=== PATIENT | female | born 1980 | race Caucasian/White ===

== ENCOUNTER 2020-05-10 09:12 | Day surgery (SDC) | payer OTHER ==
[~2020-05-10] VITALS: Ht 162.6 cm; Wt 113.4 kg
[~2020-05-10 09:12] MED LIST: BCP PO; CLAR10CA3 PO
[2020-05-10 10:04] LABS: HEMATOCRIT 40.2 % (36.0-47.0); HEMOGLOBIN 14.2 g/dl (12.0-15.5); MEAN CORPUSCULAR HEMOGLOBIN 33.7 pg (27.0-33.0); MEAN CORPUSCULAR HGB CONC 35.3 g/dl (32.0-36.5); MEAN CORPUSCULAR VOLUME 95.5 fl (80.0-96.0); PLATELET COUNT, AUTOMATED 300 10^3/uL (150-450); RED BLOOD COUNT 4.21 10^6/uL (4.00-5.40); WHITE BLOOD COUNT 10.3 10^3/uL (4.0-10.0)
[2020-05-10 10:32] LABS: BLOOD UREA NITROGEN 9 MG/DL (7-18); CALCIUM LEVEL 9.1 MG/DL (8.5-10.1); CARBON DIOXIDE LEVEL 24 MEQ/L (21-32); CHLORIDE LEVEL 105 MEQ/L (98-107); CREATININE FOR GFR 0.64 MG/DL (0.55-1.30); GLOMERULAR FILTRATION RATE > 60.0 (>60); GLUCOSE, FASTING 80 MG/DL (70-100); HCG, SERUM QUANTITATIVE < 1.0 MIU/ML; POTASSIUM SERUM 4.1 MEQ/L (3.5-5.1); SODIUM LEVEL 136 MEQ/L (136-145)
[2020-05-10] MEDS ORDERED: ONDANSETRON 4MG/2ML VIAL As Ordered ONE (10:34)
[2020-05-10] MEDS ORDERED: fentaNYL 100 MCG/2 ML INJECTION (J3010) As Ordered ONE ×2 (10:34→12:16)
[2020-05-10] MEDS ORDERED: dexameTHASONE 4 MG/ML 1ML VIAL (J1100 PER 1MG) As Ordered ONE (10:34)
[2020-05-10] MEDS ORDERED: LIDOCAINE 2% 100MG/5ML SDV (FOR ANES.) As Ordered ONE (10:34)
[2020-05-10] MEDS ORDERED: ROCURONIUM BROMIDE 50 MG/5 ML VIAL As Ordered ONE (10:34)
[2020-05-10] MEDS ORDERED: MIDAZOLAM INJ 2MG/2ML VIAL (J2250 PER 1MG) As Ordered ONE (10:34)
[2020-05-10] MEDS ORDERED: propofoL 200 MG/20 ML VIAL As Ordered ONE (10:34)
[2020-05-10] MEDS ORDERED: BUPIVACAINE HCL 0.5% 10ML VIAL As Ordered ONE (11:26)
[2020-05-10] MEDS ORDERED: ACETAMINOPHEN 650 MG SUPP As Ordered ONE ×2 (11:26→11:58)
[2020-05-10] MEDS ORDERED: KETOROLAC 60MG 2ML VIAL As Ordered ONE (12:00)
[2020-05-10] MEDS ORDERED: SUGAMMADEX SODIUM 500 MG/5 ML VIAL (BRIDION) As Ordered ONE (12:00)
[2020-05-10] MEDS ORDERED: LABETALOL 100MG/20ML VIAL As Ordered ONE (12:00)
[2020-05-10] MEDS ORDERED: METOCLOPRAMIDE INJ 10MG/2ML VIAL (J2765 PER 1) As Ordered ONE (13:32)
[2020-05-10] MEDS ORDERED: LR 1,000 ML IV SCH (13:45)
[2020-05-10] MEDS ORDERED: oxyCODONE 5MG TAB PO PRN (13:45)
[2020-05-10] MEDS ORDERED: ONDANSETRON 4MG/2ML VIAL IV PRN (13:45)
[2020-05-10] MEDS ORDERED: fentaNYL 100 MCG/2 ML INJECTION (J3010) IV PRN (13:45)
[2020-05-10] MEDS ORDERED: HYDROMORPHONE HCL 0.5 MG/ 0.5 ML SYRINGE (J1170 PER 1) IV PRN (13:45)
[2020-05-10 14:30] VITALS: BP 142/77
[2020-05-10] MEDS ORDERED: KETOROLAC 30 MG/ML 1ML VIAL IV PRN (19:00)
== END 2020-05-10 14:30 | disposition home or self-care (01) ==
LOC: M SDC 09:12
PROVIDERS: ATTEND Obstetrics & Gynecology
DX: Z30.2 Encounter for sterilization (principal); N93.9 Abnormal uterine and vaginal bleeding, unspecified
CPT/HCPCS: 36415; 58558; 58661; 80048; 84702; 85027; 88302; 88305; J1100; J1885; J2250; J2405; J3010

== ENCOUNTER 2020-11-02 09:59 | Day surgery (SDC) | payer OTHER ==
[~2020-11-02] VITALS: Ht 162.6 cm; Wt 112.9 kg
[~2020-11-02 09:59] MED LIST changes: +ACETAMINOPHEN 650 MG SUPP PR ONE; +LISI20TA35 PO; +LR 1,000 ML IV ONE; +NORG1TAB4 PO; +NS 1,000 ML IV SCH
[2020-11-02 10:27] LABS: HEMATOCRIT 38.4 % (36.0-47.0); HEMOGLOBIN 13.6 g/dl (12.0-15.5); MEAN CORPUSCULAR HEMOGLOBIN 34.9 pg (27.0-33.0); MEAN CORPUSCULAR HGB CONC 35.4 g/dl (32.0-36.5); MEAN CORPUSCULAR VOLUME 98.5 fl (80.0-96.0); PLATELET COUNT, AUTOMATED 335 10^3/uL (150-450); WHITE BLOOD COUNT 10.2 10^3/uL (4.0-10.0)
[2020-11-02 11:00] LABS: BLOOD UREA NITROGEN 13 MG/DL (7-18); CALCIUM LEVEL 9.2 MG/DL (8.5-10.1); CARBON DIOXIDE LEVEL 30 MEQ/L (21-32); CHLORIDE LEVEL 105 MEQ/L (98-107); CREATININE FOR GFR 0.59 MG/DL (0.55-1.30); GLOMERULAR FILTRATION RATE > 60.0 (>60); GLUCOSE, FASTING 92 MG/DL (70-100); HCG, SERUM QUANTITATIVE < 1.0 MIU/ML; POTASSIUM SERUM 4.4 MEQ/L (3.5-5.1); SODIUM LEVEL 140 MEQ/L (136-145)
[2020-11-02] MEDS ORDERED: propofoL 200 MG/20 ML VIAL As Ordered ONE ×2 (12:06→12:34)
[2020-11-02] MEDS ORDERED: LIDOCAINE 2% 100MG/5ML SDV (FOR ANES.) As Ordered ONE (12:06)
[2020-11-02] MEDS ORDERED: MIDAZOLAM INJ 2MG/2ML VIAL (J2250 PER 1MG) As Ordered ONE (12:06)
[2020-11-02] MEDS ORDERED: fentaNYL 100 MCG/2 ML INJECTION (J3010) As Ordered ONE ×2 (12:06→13:05)
[2020-11-02] MEDS ORDERED: ACETAMINOPHEN 650 MG SUPP As Ordered ONE (12:50)
[2020-11-02] MEDS ORDERED: dexameTHASONE 4 MG/ML 1ML VIAL (J1100 PER 1MG) As Ordered ONE (12:58)
[2020-11-02] MEDS ORDERED: ONDANSETRON 4MG/2ML VIAL As Ordered ONE (12:58)
[2020-11-02] MEDS ORDERED: KETOROLAC 60MG 2ML VIAL As Ordered ONE (12:58)
[2020-11-02] MEDS ORDERED: ONDANSETRON 4MG/2ML VIAL IV PRN (14:00)
[2020-11-02] MEDS ORDERED: LR 1,000 ML IV SCH (14:00)
[2020-11-02] MEDS ORDERED: oxyCODONE 5MG TAB PO PRN (14:00)
[2020-11-02] MEDS ORDERED: fentaNYL 100 MCG/2 ML INJECTION (J3010) IV PRN (14:00)
[2020-11-02 14:55] VITALS: BP 129/83
[2020-11-02] MEDS ORDERED: KETOROLAC 30 MG/ML 1ML VIAL IV PRN (19:00)
--- NOTE | 2020-11-03 08:51 | RO ---
OPERATIVE NOTE DATE OF OPERATION: 11/02/2020 PREOPERATIVE DIAGNOSIS: POSTOPERATIVE DIAGNOSIS: PROCEDURE PROPOSED: Hysteroscopy, D&C, NovaSure endometrial ablation. OPERATION PERFORMED: Hysteroscopy, D&C, endometrial NovaSure ablation. SURGEON: Brain Flores MD CAVING GUIDE: ANESTHESIA: General. ESTIMATED BLOOD LOSS: Less than 20 mL. DESCRIPTION OF PROCEDURE: After adequate time out, prep and draped lithotomy position. Bladder drained of 100 mL of clear urine. Weighted speculum in vagina. Single tooth tenaculum on anterior lip of cervix. Uterus sounded up to 6 cm, dilated to Pappas 8. Curettage of the cavity revealed endometrial tissue which was sent off to pathology under separate cover. Last period was 10/30/2020. The endometrial NovaSure ablation instrument was placed in the cavity. The cavity showed that there was no evidence of perforation and I got a good seal. The distance of the cavity was 6 cm, width was 4 cm. The wattage was [address] at 32 seconds. With instrument correct we removed the endometrial NovaSure ablation. We then hysteroscoped the patient, on review anterior and posterior khalil were completely obliterated. There was a small area in the patient's left cornua that was not completely ablated but you could see that there was some charring there. We used 150 mL of normal saline in, 150 mL out. The uterus was placed in anatomical position. The tenaculum was removed. The patient was sent to recovery in good condition.
== END 2020-11-02 14:55 | disposition home or self-care (01) ==
LOC: M SDC 09:59
PROVIDERS: ATTEND Obstetrics & Gynecology
DX: N84.0 Polyp of corpus uteri (principal); N93.9 Abnormal uterine and vaginal bleeding, unspecified; I10 Essential (primary) hypertension; Z79.899 Other long term (current) drug therapy
CPT/HCPCS: 36415; 58563; 80048; 84702; 85027; 88305; J1100; J1885; J2250; J2405; J3010

== ENCOUNTER → 2020-11-09 | Outpatient (CLI) | payer OTHER ==
[~2020-11-09] MED LIST changes: -ACETAMINOPHEN 650 MG SUPP PR ONE; -LR 1,000 ML IV ONE; -NS 1,000 ML IV SCH
[2020-11-09 12:01] VITALS: BP 118/84
--- NOTE | 2020-11-09 15:15 | REP ---
INDICATION: R92.8 ABN LT MAMMO,US GUIDED BIOPSY. COMPARISON: None TECHNIQUE: Real-time sonographic evaluation of left breast performed. FINDINGS: Ultrasound guidance provided for Dr. Velazquez for ultrasound-guided biopsy of a subcentimeter hypoechoic lesion seen on the 1st image at 6 o'clock left breast. IMPRESSION: Ultrasound guidance provided for Dr. Velazquez for ultrasound-guided biopsy of a subcentimeter hypoechoic lesion seen on the 1st image at 6 o'clock left breast. RECOMMENDATION: Clinical follow-up. <Electronically signed by Dylan Miller > 11/09/20 0742
--- NOTE | 2020-11-09 15:17 | REP ---
INDICATION: R92.8 ABN LT MAMMO,POST US GUIDED BIOPSY. COMPARISON: None. TECHNIQUE: ML and CC views left breast. FINDINGS: Mild scattered fibroglandular tissues are present. Biopsy clip is seen approximately 5.6 cm behind the nipple. IMPRESSION: Biopsy clip identified centrally in the left breast. RECOMMENDATION: Clinical follow-up. <Electronically signed by Dylan Miller > 11/09/20 3020
--- NOTE | 2020-11-10 19:49 | ROOPDOC ---
[facility] Report Of Operation Report of Operation DATE OF PROCEDURE: 11/09/20 DIAGNOSIS: left breast suspicious lesion PROCEDURE: ultrasound guided biopsy of the left breast suspicious lesion with clip placement SURGEON: Verónica Boland BLOOD LOSS: minimal COMPLICATIONS: none Lidocaine 1% LOT [id number] Expiration 07/2021 Sodium Bicarbonate 8.4% LOT [id number] Expiration 09/2021 Hydromark clip LOT [id number] Expiration 06/2023 SHAPE : 3 Bx device: BARD [id number] x10 cm LOT [id number] Expiration 08/2021 Informed consent was obtained. The most common risk and possible complications including bleeding, hematoma, bruising, infection, injury to surrounding structures were explained to the patient and the patient expressed understanding. Patient was placed on the bed in the supine position. Appropriate time out was done stating patients name, date of , and the procedure to be performed. The left breast was prepped and draped in the usual fashion. The ultrasound was used to confirm the location of the lesion in the left breast at 6:00 2-3 centimeters from the nipple. Plain Lidocaine 1% and 8.4% sodium bicarbonate 10:1 mix was used to anesthetize the skin, the biopsy site and tissues along the anticipated biopsy tract. Small skin incision was made with blade number 11. BARD Marquee 14G cannula with introducer ([id number]) was inserted through the incision and advanced under the ultrasound guidance to position immediately adjacent to the lesion. Next, the introducer was removed and BARD Marquee 14G biopsy device was places in the cannula. Pre-biopsy imaging, and post-biopsy imaging were captured. Three good core biopsies were taken at various levels of the lesion. Afterwards the lesion was not clearly seen on sono and no additional biopsies were done. Specimen was placed in formaldehyde, labeled with appropriate biopsy site and patients name, and sent to pathology for evaluation. Next, the biopsy device was withdrawn and a clip introducer was inserted into the biopsy site via the cannula. SHAPE 3 Hydromark clip was deployed under sonographic guidance. Post-clip placement image was captured. Manual pressure over the biopsy cavity and tract was held after the clip introducer was withdrawn. No bleeding was noted upon removal of the pressure. Post-biopsy mammogram of the left breast was obtained and showed clip in expected position. Postprocedural dressing was placed. Patient tolerated procedure well. Discharge instructions were discussed with the patient and the patient expressed understanding. VERÓNICA BOLAND DO Nov 10, 2020 19:49
== END ==
LOC: M WHCPRO 08:43
PROVIDERS: ATTEND Surgery
DX: N60.22 Fibroadenosis of left breast (principal)

== ENCOUNTER → 2020-11-09 | Outpatient (CLI) | payer OTHER | LOC: M PLALAB 12:14 | PROVIDERS: ATTEND Surgery | DX: Z13.9 Encounter for screening, unspecified (principal) ==

== ENCOUNTER → 2021-01-05 | Outpatient (CLI) | payer OTHER ==
[2021-01-05 10:50] LABS: BASO # 0.1 10^3/uL (0.0-0.2); BASO % 0.5 % (0.0-1.0); EOS # 0.3 10^3/uL (0.0-0.5); EOS % 2.9 % (0.0-3.0); HEMATOCRIT 39.3 % (36.0-47.0); HEMOGLOBIN 13.8 g/dl (12.0-15.5); LYMPH # 3.4 10^3/uL (1.5-5.0); LYMPH % 32.2 % (24.0-44.0); MEAN CORPUSCULAR HGB CONC 35.1 g/dl (32.0-36.5); MEAN CORPUSCULAR VOLUME 99.7 fl (80.0-96.0); MONO # 0.9 10^3/uL (0.0-0.8); MONO % 8.4 % (2.0-8.0); NEUTROPHILS # 5.9 10^3/uL (1.5-8.5); NEUTROPHILS % 55.7 % (36.0-66.0); PLATELET COUNT, AUTOMATED 299 10^3/uL (150-450); RED BLOOD COUNT 3.94 10^6/uL (4.00-5.40); WHITE BLOOD COUNT 10.5 10^3/uL (4.0-10.0)
[2021-01-05 11:28] LABS: ALT/SGPT 29 U/L (12-78); BILIRUBIN,TOTAL 0.3 MG/DL (0.2-1.0); BLOOD UREA NITROGEN 13 MG/DL (7-18); CALCIUM LEVEL 9.2 MG/DL (8.5-10.1); CARBON DIOXIDE LEVEL 29 MEQ/L (21-32); CHLORIDE LEVEL 108 MEQ/L (98-107); CHOLESTEROL LEVEL 207 MG/DL (<200); CREATININE FOR GFR 0.63 MG/DL (0.55-1.30); GLOMERULAR FILTRATION RATE > 60.0 (>60); GLUCOSE, FASTING 92 MG/DL (70-100); POTASSIUM SERUM 4.3 MEQ/L (3.5-5.1); SODIUM LEVEL 143 MEQ/L (136-145); TRIGLYCERIDES LEVEL 89 MG/DL (<150)
[2021-01-05 11:29] LABS: ALBUMIN 3.5 GM/DL (3.2-5.2); CHOLESTEROL RISK RATIO 3.338 (<5); FREE T4 0.91 NG/DL (0.76-1.46); HDL CHOLESTEROL 62 MG/DL (>40); LDL CHOLESTEROL 127 MG/DL (<100); NON-HDL-C 145 MG/DL; TOTAL PROTEIN 7.2 GM/DL (6.4-8.2)
[2021-01-05 12:09] LABS: HEMOGLOBIN A1c 4.9 %
== END ==
LOC: M PLALAB 08:17
PROVIDERS: ATTEND Physician Assistant
DX: I10 Essential (primary) hypertension (principal); K75.81 Nonalcoholic steatohepatitis (NASH); E66.8 Other obesity

== ENCOUNTER → 2021-02-18 | Outpatient (CLI) | payer OTHER | LOC: M LABSMTC 09:19 | PROVIDERS: ATTEND Anesthesiology | DX: Z01.818 Encounter for other preprocedural examination (principal); Z11.52 Encounter for screening for COVID-19 ==

== ENCOUNTER 2021-02-23 12:34 | Day surgery (SDC) | payer OTHER ==
[~2021-02-23] VITALS: Ht 162.6 cm; Wt 114.3 kg
[~2021-02-23 12:34] MED LIST changes: +LIDOCAINE 2% 100MG/5ML SDV (FOR ANES.) As Ordered ONE; +NS 1,000 ML IV ONE; +propofoL 200 MG/20 ML VIAL As Ordered ONE
[2021-02-23] MEDS ORDERED: propofoL 500 MG/50 ML VIAL As Ordered ONE (13:24)
[2021-02-23] MEDS ORDERED: propofoL 200 MG/20 ML VIAL As Ordered ONE (15:43)
--- NOTE | 2021-02-23 16:05 | ROOR ---
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 Procedure: Pre-Anesthesia Assessment: - Prior to the procedure, a History and Physical was performed, and patient medications and allergies were reviewed. The patient is competent. The risks and benefits of the procedure and the sedation options and risks were discussed with the patient. All questions were answered and informed consent was obtained. Patient identification and proposed procedure were verified by the physician, the nurse and the anesthesiologist in the procedure room. Mental Status Examination: alert and oriented. Airway Examination: normal oropharyngeal airway and neck mobility. Respiratory Examination: clear to auscultation. CV Examination: normal. Prophylactic Antibiotics: The patient does not require prophylactic antibiotics. Prior Anticoagulants: The patient has taken no previous anticoagulant or antiplatelet agents. ASA Grade Assessment: II - A patient with mild systemic disease. After reviewing the risks and benefits, the patient was deemed in satisfactory condition to undergo the procedure. The anesthesia plan was to use monitored anesthesia care (MAC). Immediately prior to administration of medications, the patient was re-assessed for adequacy to receive sedatives. The heart rate, respiratory rate, oxygen saturations, blood pressure, adequacy of pulmonary ventilation, and response to care were monitored throughout the procedure. The physical status of the patient was re-assessed after the procedure. The Colonoscope was introduced through the anus and advanced to the terminal ileum, with identification of the appendiceal orifice and IC valve. The colonoscopy was performed without difficulty. The patient tolerated the procedure well. The quality of the bowel preparation was good. The terminal ileum, ileocecal valve, appendiceal orifice, and rectum were photographed. Scope insertion time was 2 minutes. Scope withdrawal time was 9 minutes. The total duration of the procedure was 15 minutes. Findings: The perianal and digital rectal examinations were normal. The terminal ileum appeared normal. Four sessile polyps were found in the recto-sigmoid colon and descending colon. The polyps were 6 to 8 mm in size. These polyps were removed with a hot snare. Resection and retrieval were complete. Verification of patient identification for the specimen was done by the physician and nurse using the patient's name, date and medical record number. Estimated blood loss was minimal. Non-bleeding external and internal hemorrhoids were found during retroflexion. The hemorrhoids were medium-sized. Impression: - The examined portion of the ileum was normal. - Four 6 to 8 mm polyps at the recto-sigmoid colon and in the descending colon, removed with a hot snare. Resected and retrieved. - Non-bleeding external and internal hemorrhoids. Recommendation: - Patient has a contact number available for emergencies. The signs and symptoms of potential delayed complications were discussed with the patient. Return to normal activities tomorrow. Written discharge instructions were provided to the patient. - High fiber diet. - Continue present medications. - Await pathology results. - Repeat colonoscopy in 2 years for surveillance based on pathology results and due to personal history of positive genetic test result. - Telephone GI clinic for pathology results in 2 weeks. - Return to primary care physician. Procedure Code(s): --- Professional --- 00510, Colonoscopy, flexible; with removal of tumor(s), polyp(s), or other lesion(s) by snare technique Diagnosis Code(s): --- Professional --- Z86.010, Personal history of colonic polyps K64.8, Other hemorrhoids K63.5, Polyp of colon Z15.09, Genetic susceptibility to other malignant neoplasm CPT copyright 2019 [employer]. All rights reserved. The codes documented in this report are preliminary and upon erecting crane operator review may be revised to meet current compliance requirements. Woo Perales MD Woo Perales MD 02/23/2021 4:05:20 PM Electronically signed by Woo Perales MD Number of Addenda: 0 Note Initiated On: 02/23/2021 3:28 PM Estimated Blood Loss: Estimated blood loss was minimal.
[2021-02-23 16:10] VITALS: BP 139/84
== END 2021-02-23 16:41 | disposition home or self-care (01) ==
LOC: M OPP 12:34
PROVIDERS: ATTEND Internal Medicine Gastroenterology
DX: Z12.11 Encounter for screening for malignant neoplasm of colon (principal); Z86.010 Personal history of colon polyps; Z15.09 Genetic susceptibility to other malignant neoplasm; K63.5 Polyp of colon; K64.8 Other hemorrhoids; I10 Essential (primary) hypertension; Z79.899 Other long term (current) drug therapy; Z80.3 Family history of malignant neoplasm of breast; Z80.41 Family history of malignant neoplasm of ovary

== ENCOUNTER → 2021-03-03 | Outpatient (CLI) | payer OTHER ==
[~2021-03-03] MED LIST changes: +IBUP80TA PO; -LIDOCAINE 2% 100MG/5ML SDV (FOR ANES.) As Ordered ONE; -NS 1,000 ML IV ONE; +PERC5TAB12 PO; -propofoL 200 MG/20 ML VIAL As Ordered ONE
== END ==
LOC: M LABSMTC 11:12
PROVIDERS: ATTEND Anesthesiology
DX: Z01.812 Encounter for preprocedural laboratory examination (principal); Z20.822 Contact with and (suspected) exposure to COVID-19
CPT/HCPCS: G0463; U0003

== ENCOUNTER 2021-03-08 06:03 | Day surgery (SDC) | payer OTHER ==
[~2021-03-08] VITALS: Ht 162.6 cm; Wt 117.4 kg
[~2021-03-08 06:03] MED LIST changes: -IBUP80TA PO; -PERC5TAB12 PO
[2021-03-08] MEDS ORDERED: LR 1,000 ML IV ONE (06:30)
[2021-03-08] MEDS ORDERED: ceFAZolin SOD 2 GM in IV 1 EA IV ONE (06:30)
[2021-03-08 06:47] LABS: HEMATOCRIT 40.3 % (36.0-47.0); HEMOGLOBIN 13.8 g/dl (12.0-15.5); MEAN CORPUSCULAR HEMOGLOBIN 34.4 pg (27.0-33.0); MEAN CORPUSCULAR HGB CONC 34.2 g/dl (32.0-36.5); MEAN CORPUSCULAR VOLUME 100.5 fl (80.0-96.0); PLATELET COUNT, AUTOMATED 328 10^3/uL (150-450); RED BLOOD COUNT 4.01 10^6/uL (4.00-5.40); WHITE BLOOD COUNT 9.7 10^3/uL (4.0-10.0)
[2021-03-08] MEDS ORDERED: BUPIVACAINE HCL 0.25% 30ML VIAL As Ordered ONE (07:16)
--- NOTE | 2021-03-08 08:08 | ROOPDOC ---
[facility] Report Of Operation Report of Operation DATE OF PROCEDURE: 03/08/21 PREPROCEDURE DIAGNOSES: 1. Dysmenorrhea POSTPROCEDURE DIAGNOSES: 1. Dysmenorrhea PROCEDURES PERFORMED: 1. Robotic-assisted laparoscopic hysterectomy. 2. Cystoscopy. SURGEON: Damien Campos MD CLINICAL REVIEWER: KEMI Chan ANESTHESIA: General endotracheal anesthesia. ESTIMATED BLOOD LOSS: 75 mL. INTRAVENOUS FLUIDS: 1000mL lactated Ringer solution. URINE OUTPUT: 200mL. PREPROCEDURE ANTIBIOTICS: 2g Ancef OPERATIVE FINDINGS: The patient with normal-appearing bilateral adnexa and uterus. CYSTOSCOPIC FINDING: Normal bladder mucosa, no foreign objects. Bilateral ureteral jets were observed. SPECIMEN: Uterus, cervix, bilateral fallopian tubes. DESCRIPTION OF PROCEDURE: After informed consent was obtained and written consent was reviewed, the patient was brought to the operating room, where general endotracheal anesthesia was obtained. She was then placed in lithotomy position, was prepped and draped in a normal sterile fashion. A time-out in the operating room was then performed, identifying the patient, procedure to be performed, as well as drug allergies. A speculum was then placed, revealing the cervix. The anterior and posterior aspects of the cervix were stitched with a 0 Vicryl. The uterus was then sounded to 9cm. A medium Inforare uterine manipulator was then advanced through the cervical os for means to manipulate the uterus. The cervical cap was applied over the cervix, as well as the vaginal sleeve applied into the vagina. The speculum was removed from the patients vagina. A Hsu catheter was then placed and set to gravity. Gloves were changed, and attention was turned to the patients abdomen, where a Veress needle was placed through the umbilicus. A pneumoperitoneum was then obtained with CO2 gas. The supraumbilical area was infused with 0.25% Marcaine. An incision was made in this area, and a 8 mm trocar and sleeve was advanced through this incision. The laparoscope was then replaced, revealing intra-abdominal placement. Three additional port sites were placed, two to the left side of the patient's abdomen and one to the right. These areas was infused with 0.25% Marcaine. Each one of these areas, incisions were made, and 8 mm trocars and sleeves advanced through each one of these incisions under direct visualization. Next, the da Jose was then docked, utilizing a camera arm and two operative arms. The patient's abdomen was then surveyed with the above-noted finding. Next, the uteroovarian ligaments bilateral were cauterized and ligated with good hemostasis noted. The round ligaments bilaterally were cauterized and ligated with good hemostasis noted. The anterior and posterior aspects of broad ligaments were . The anterior leaf of the broad ligament was cauterized and ligated and dissected along the bladder, creating a bladder flap. The remainder of the broad and cardinal ligaments were then cauterized and ligated with good hemostasis noted. The uterine arteries were skeletonized bilaterally and were cauterized and transected with good hemostasis noted. Anterior and posterior colpotomies were made using monopolar scissors. The uterus was then brought out through the vaginal incision. The surgical sites were inspected and noted to be hemostatic. The vaginal cuff was then closed using 2-0 V-Loc system in a running fashion. Sarthak was then applied over the surgical field. The pneumoperitoneum was then released. Next, the cystoscopy was then performed. Utilizing a 70-degree cystoscope, it was advanced transurethrally through the bladder. The bladder was surveyed, showing normal bladder mucosa, no foreign bodies. The bilateral ureteral jets were observed. The cystoscope was then removed. The bladder was then drained. Gloves were changed. Attention was then turned to the patients abdomen, where all four port sites were closed with 4-0 Monocryl and dressed with Dermabond. The patient was then taken out of lithotomy position and was awakened from general anesthesia and taken to recovery in stable condition. Counts were correct. Katerina Hilliard, my surgical coordinator, played a central role in the operation. She assisted with port placement, tissue retraction and identification, as well as wound closure. DAMIEN CAMPOS MD. Mar 08, 2021 08:08
[2021-03-08] MEDS ORDERED: dexameTHASONE 4 MG/ML 1ML VIAL (J1100 PER 1MG) As Ordered ONE (08:18)
[2021-03-08] MEDS ORDERED: fentaNYL 250 MCG/5 ML INJECTION (J3010) As Ordered ONE (08:18)
[2021-03-08] MEDS ORDERED: ONDANSETRON 4MG/2ML VIAL As Ordered ONE (08:18)
[2021-03-08] MEDS ORDERED: KETOROLAC 60MG 2ML VIAL As Ordered ONE (08:18)
[2021-03-08] MEDS ORDERED: LIDOCAINE 2% 100MG/5ML SDV (FOR ANES.) As Ordered ONE (08:18)
[2021-03-08] MEDS ORDERED: DESFLURANE 240 ML INHALANT As Ordered ONE (08:18)
[2021-03-08] MEDS ORDERED: propofoL 200 MG/20 ML VIAL As Ordered ONE (08:18)
[2021-03-08] MEDS ORDERED: ROCURONIUM BROMIDE 50 MG/5 ML VIAL As Ordered ONE (08:18)
[2021-03-08] MEDS ORDERED: MIDAZOLAM INJ 2MG/2ML VIAL (J2250 PER 1MG) As Ordered ONE (08:18)
[2021-03-08] MEDS ORDERED: SUGAMMADEX SODIUM 500 MG/5 ML VIAL (BRIDION) As Ordered ONE (08:18)
[2021-03-08] MEDS ORDERED: METOCLOPRAMIDE INJ 10MG/2ML VIAL (J2765 PER 1) As Ordered ONE (08:18)
[2021-03-08] MEDS ORDERED: METHYLENE BLUE 0.5% (5MG/ML) 10 ML AMP (PROVAYBLUE) As Ordered ONE (09:01)
[2021-03-08] MEDS ORDERED: SCOPOLAMINE 1MG TRANSDERMAL PATCH As Ordered ONE (09:02)
[2021-03-08] MEDS ORDERED: oxyCODONE 5MG TAB PO PRN (10:10)
[2021-03-08] MEDS ORDERED: LR 1,000 ML IV SCH (10:10)
[2021-03-08] MEDS ORDERED: fentaNYL 100 MCG/2 ML INJECTION (J3010) IV PRN (10:10)
[2021-03-08] MEDS ORDERED: ONDANSETRON 4MG/2ML VIAL IV PRN (10:10)
[2021-03-08] MEDS ORDERED: PERC5TAB12 PO (10:15)
[2021-03-08] MEDS ORDERED: IBUP80TA PO (10:17)
[2021-03-08] MEDS ORDERED: ACETAMINOPHEN 1000MG 100ML IV BTL (OFIRMEV) (J0131 PER 10MG) As Ordered ONE (10:36)
[2021-03-08 12:49] VITALS: BP 108/59
[2021-03-08] MEDS ORDERED: KETOROLAC 30 MG/ML 1ML VIAL IV SCH (15:00)
== END 2021-03-08 13:14 | disposition home or self-care (01) ==
LOC: M SDC 06:03
PROVIDERS: ATTEND Obstetrics & Gynecology
DX: N93.9 Abnormal uterine and vaginal bleeding, unspecified (principal); D25.9 Leiomyoma of uterus, unspecified; I10 Essential (primary) hypertension; Z79.899 Other long term (current) drug therapy
CPT/HCPCS: 36415; 58571; 85027; 86850; 86900; 86901; 88307; J0131; J0690; J1100; J1885; J2250; J2405; J2765; J3010; Q9968; S2900